=== PATIENT | male | born 1970 | race Caucasian/White ===

== ENCOUNTER → 2019-02-28 16:04 | Outpatient (CLI) | payer BC, SELFPAY ==
[2019-02-28 16:55] LABS: Basophils % 0.7 % (0.1-2.0); Eosinophils # 0.2 K/mm3 (0.0-0.4); Eosinophils % 3.2 % (0.1-12.0); Hematocrit 37.2 % (42.0-52.0); Hemoglobin 12.8 g/dL (14.1-18.0); Lymphocytes # 1.7 K/mm3 (0.7-4.5); Lymphocytes % 33.8 % (10-50); Mean Corpuscular HGB Conc 34.4 g/dL (31.8-35.4); Mean Corpuscular Hemoglobin 28.7 pg (27.0-31.2); Mean Corpuscular Volume 83.6 fl (80-94); Mean Platelet Volume 7.1 fl (7.4-10.4); Monocytes # 0.3 K/mm3 (0.1-1.0); Monocytes % 6.7 % (1.7-9.3); Neutrophils # 2.8 K/mm3 (1.8-7.8); Neutrophils % 55.7 % (37.0-80.0); Platelet Count 270 K/mm3 (142-424); Red Blood Count 4.45 M/mm3 (4.60-6.20); Red Cell Distribution Width 14.3 % (11.5-17.5); White Blood Count 5.1 K/mm3 (4.8-10.8)
[2019-02-28 18:50] LABS: Alanine Aminotransferase 31 U/L (12-78); Albumin Level 4.2 gm/dL (3.4-5.0); Albumin/Globulin Ratio 1.2 (1.1-1.8); Alkaline Phosphatase 114 U/L (46-116); Anion Gap 14.6 mEq/L (5-15); Aspartate Amino Transferase 23 U/L (15-37); Bilirubin,Total 0.6 mg/dL (0.2-1.0); Blood Urea Nitrogen 14 mg/dL (7-18); Calcium 9.3 mg/dL (8.5-10.1); Carbon Dioxide 29 mmol/L (21.0-32.0); Chloride 101 mmol/L (98-107); Creatinine,Serum 1.05 mg/dL (0.70-1.30); Estimated Glomerular Filt Rate 76 ml/min (>60); GFR (African American) 92 ML/MIN (>60); Globulin 3.4 gm/dl (1.3-3.2); Glucose 95 mg/dL (74-106); Potassium 4.6 mmoL/L (3.5-5.1); Sodium 140 mmol/L (136-145); Thyroid Stimulating Hormone 1.98 uIU/ml (0.358-3.740); Total Protein,Serum 7.6 gm/dL (6.4-8.2)
[2019-03-01 11:49] LABS: Ferritin 50 ng/mL (8-388)
[2019-03-02 04:07] LABS: Iron 140 ug/dL (38-169); UIBC 326 ug/dL (111-343)
[2019-03-02 11:00] LABS: Folate 10.6 ng/mL (>3.0); Iron Saturation 30 % (15-55); Vitamin B12 420 pg/mL (232-1245)
== END ==
PROVIDERS: Visit Provider Nurse Practitioner Family
DX: F33.1 Major depressive disorder, recurrent, moderate (principal); R53.81 Other malaise
CPT/HCPCS: 36415; 80053; 82607; 82728; 82746; 83540; 83550; 84443; 85025

== ENCOUNTER → 2019-03-22 12:34 | Outpatient (CLI) | payer OTHER, BC, SELFPAY ==
--- NOTE | 2019-03-22 12:43 | XR_ITS ---
PROCEDURE: XR KNEE LT 3V CLINICAL INDICATION: knee pain Anterior knee pain COMPARISON: No exams were available for comparison FINDINGS: No fracture or dislocation. No lytic or blastic change. There is normal mineralization. The joint spaces are well-preserved. No significant degenerative/arthritic changes. No erosive changes evident. Other findings:Well-circumscribed corticated fragment noted of the tibial tuberosity with associated soft tissue swelling IMPRESSION: There is a well-circumscribed corticated fragment of the tibial tuberosity noted with associated soft tissue swelling suggesting adult Yannick-Schlatter's disease. Dictated by: Pillo Magana MD 03/22/2019 15:00 Electronically signed by Pillo Magana MD in [place] 03/22/2019 15:00
== END ==
PROVIDERS: PCP Emergency Medicine; Visit Provider Emergency Medicine
DX: M25.562 Pain in left knee (principal)
CPT/HCPCS: 73562

== ENCOUNTER → 2019-10-31 11:22 | Outpatient (CLI) | payer BC, SELFPAY | PROVIDERS: PCP Nurse Practitioner Family; Visit Provider Nurse Practitioner Family | DX: G47.30 Sleep apnea, unspecified (principal); R40.0 Somnolence; R51 Headache; E66.9 Obesity, unspecified | CPT/HCPCS: G0399 ==

== ENCOUNTER → 2020-06-13 13:15 | Outpatient (CLI) | payer BC, SELFPAY ==
[2020-06-13 13:48] LABS: Basophils # 0.1 K/mm3 (0-0.2); Basophils % 0.8 % (0.1-2.0); Eosinophils # 0.2 K/mm3 (0.0-0.4); Eosinophils % 2.3 % (0.1-12.0); Hematocrit 40.4 % (42.0-52.0); Hemoglobin 13.4 g/dL (14.1-18.0); Lymphocytes % 30.6 % (10-50); Mean Corpuscular Hemoglobin 27.7 pg (27.0-31.2); Mean Corpuscular Volume 83.8 fl (80-94); Mean Platelet Volume 6.8 fl (7.4-10.4); Monocytes # 0.4 K/mm3 (0.1-1.0); Monocytes % 5.6 % (1.7-9.3); Neutrophils % 60.7 % (37.0-80.0); Platelet Count 275 K/mm3 (142-424); Red Blood Count 4.82 M/mm3 (4.60-6.20); Red Cell Distribution Width 13.2 % (11.5-17.5); White Blood Count 6.5 K/mm3 (4.8-10.8)
[2020-06-13 13:52] LABS: Hemoglobin A1C 5.8 % (4.0-6.0)
[2020-06-13 14:08] LABS: Alanine Aminotransferase 34 U/L (12-78); Albumin Level 4.6 g/dl (3.5-5.0); Albumin/Globulin Ratio 1.5 (1.1-1.8); Alkaline Phosphatase 98 U/L (38-126); Anion Gap 10.3 mEq/L (5-15); Aspartate Amino Transferase 33 U/L (17-59); Bilirubin,Total 0.4 mg/dl (0.2-1.3); Blood Urea Nitrogen 17 mg/dl (9-20); Calcium 9.6 mg/dl (8.4-10.2); Carbon Dioxide 28 mmol/L (22.0-30.0); Chloride 102 mmol/L (98-107); Chol/HDL Ratio 6.3 (1-3.5); Cholesterol 213 mg/dl (140-200); Estimated Glomerular Filt Rate 90 ml/min (>60); GFR (African American) 109 ML/MIN (>60); Glucose 102 mg/dl (74-100); HDL Cholesterol 34 mg/dl (40-60); Potassium 4.3 mmoL/L (3.5-5.1); Sodium 136 mmol/L (136-145); Total Protein,Serum 7.6 g/dl (6.3-8.2); Triglycerides 350 mg/dl (30-150); VLDL Cholesterol 70 mg/dL (0-40)
[2020-06-13 14:20] LABS: Direct LDL Cholesterol 99.77 mg/dL (100-129)
[2020-06-13 14:27] LABS: 25-OH Vitamin D, Total 28.3 ng/mL (30-100)
[2020-06-13 14:39] LABS: Thyroid Stimulating Hormone 1.34 uIU/mL (0.465-4.68)
[2020-06-14 17:56] LABS: Testosterone,Total 300 ng/dL (264-916)
== END ==
PROVIDERS: Visit Provider Nurse Practitioner Family
DX: Z00.00 Encounter for general adult medical examination without abnormal findings (principal); R73.9 Hyperglycemia, unspecified; E78.2 Mixed hyperlipidemia; E55.9 Vitamin D deficiency, unspecified; R40.0 Somnolence; R68.82 Decreased libido
CPT/HCPCS: 36415; 80053; 80061; 82306; 83036; 84403; 84443; 85025

== ENCOUNTER → 2021-01-15 10:43 | Outpatient (CLI) | payer BC, SELFPAY ==
[2021-01-15 10:45] LABS: Microscopic, Urine URINE MICROSCOPIC (MICROSCOPIC)
[2021-01-15 12:00] LABS: Appearance,Urine CLEAR (Clear); Bilirubin,Urine Negative (Negative); Blood, Urine Negative (Negative); Color,Urine YELLOW (Yellow); Glucose,Urine (UA) Negative (Negative); Ketones,Urine Negative (Negative); Leukocyte Esterase,Urine Negative (Negative); Nitrate,Urine Negative (Negative); PH,Urine 7.5 (5.0-8.5); Protein,Urine Negative (Negative); Urobilinogen,Urine 0.2 EU/dl (0.2)
[2021-01-15 12:21] LABS: Mucus,Urine Trace /lpf
[2021-01-15 16:42] LABS: Chloride 100 mmol/L (98-107)
[2021-01-15 16:43] LABS: Potassium 4.4 mmoL/L (3.5-5.1); Sodium 139 mmol/L (136-145)
[2021-01-15 16:46] LABS: Anion Gap 14.4 mEq/L (5-15); Blood Urea Nitrogen 14 mg/dl (9-20); Calcium 9.2 mg/dl (8.4-10.2); Carbon Dioxide 29 mmol/L (22.0-30.0); Estimated Glomerular Filt Rate 90 ml/min (>60); GFR (African American) 109 ML/MIN (>60); Glucose 105 mg/dl (74-100)
== END ==
PROVIDERS: Visit Provider Internal Medicine Adolescent Medicine
DX: M54.5 Low back pain (principal)
CPT/HCPCS: 36415; 80048; 81001

== ENCOUNTER → 2021-12-11 09:12 | Outpatient (CLI) | payer BC, SELFPAY ==
--- NOTE | 2021-12-11 09:27 | CT_ITS ---
FINAL REPORT CLINICAL HISTORY: GROSS HEMATURIA; FLANK PAIN FINDINGS: Axial CT images of the abdomen and pelvis were obtained without intravenous contrast. Coronal reformatted images were also obtained.This study was performed with techniques to keep radiation doses as low as reasonably achievable (ALARA). Individualized dose reduction techniques using automated exposure control or adjustment of mA and/or kV according to the patient''s size were employed. Abdomen: The lung bases are clear. There is no evidence of renal stone or hydronephrosis. The gallbladder is present. The liver is fatty infiltrated. The spleen and pancreas have an unremarkable, unenhanced appearance. No mass or adenopathy is seen. No inflammatory process is identified. Pelvis: Images of the pelvis reveal no evidence of ureteral dilation or ureteral stone. The appendix is not visualized. No mass or abnormal fluid collection is identified. There is a small right inguinal hernia containing fat only. There are postoperative changes in the lower pelvis. IMPRESSION: No renal or ureteral stone, or hydronephrosis. Small right inguinal hernia containing fat only. Reviewed, Interpreted and Dictated by Reginald Reyes III, MD Transcribed by Crystal Gonzales Authenticated and . [facility]
== END ==
PROVIDERS: PCP Nurse Practitioner Family; Visit Provider Nurse Practitioner Family
DX: R10.9 Unspecified abdominal pain (principal); R31.0 Gross hematuria
CPT/HCPCS: 74176

== ENCOUNTER 2024-10-04 11:44 | Outpatient (CLI) | payer BC, SELFPAY ==
--- NOTE | 2024-10-04 11:48 | XR_ITS ---
FINAL REPORT CLINICAL HISTORY: lower back pain with sciatica COMPARISON: None FINDINGS: LUMBOSACRAL SPINE SERIES Five views of the lumbosacral spine were obtained. There is no fracture present. There is no malalignment. There is mild to moderate anterior osteophyte formation at L1-2 and L2-3. Surgical clips are noted in the floor the pelvis. The SI joints are widely patent. IMPRESSION: Degenerative changes without acute process. Reviewed, Interpreted and Dictated by Aron Wagner MD Transcribed by Kandace Simental Authenticated and [facility]
--- NOTE | 2024-10-04 11:49 | XR_ITS ---
FINAL REPORT CLINICAL HISTORY: lower back pain with sciatica COMPARISON: None FINDINGS: RIGHT HIP Two views of the right hip with an AP view of the pelvis demonstrate no acute fracture or dislocation. The joint spaces appear normal. The visualized bony structures are well aligned. Moderate vascular calcifications in the mid right SFA are greater than expected for patient's age. IMPRESSION: No acute bony abnormality. Reviewed, Interpreted and Dictated by Aron Wagner MD Transcribed by Kandace Simental Authenticated and [facility]
--- NOTE | 2024-10-04 11:49 | XR_ITS ---
FINAL REPORT CLINICAL HISTORY: SACROLLITIS MECHANICAL LOW BACK PAIN COMPARISON: None FINDINGS: LEFT HIP: Two views of the left hip with an AP view of the pelvis demonstrate no acute fracture or dislocation. There is a sclerotic focus in the proximal femoral diaphysis measuring 2.1 cm probably representing an enostosis. The joint spaces appear normal. The visualized bony structures are well aligned. No soft tissue abnormality is seen. IMPRESSION: Sclerotic focus proximal femur. If patient has a history of prostate cancer, blastic metastasis cannot be excluded. Reviewed, Interpreted and Dictated by Aron Wagner MD Transcribed by Kandace Simental Authenticated and [facility]
--- NOTE | 2024-10-04 11:52 | XR_ITS ---
FINAL REPORT CLINICAL HISTORY: SACROLITIS MECHANICAL LOW BACK PAIN COMPARISON: None FINDINGS: SACROILIAC JOINTS SERIES Three views were obtained. There is no acute fracture or dislocation. The joint spaces appear normal. The visualized bony structures are well aligned. No soft tissue abnormality is seen. IMPRESSION: No acute bony abnormality. Reviewed, Interpreted and Dictated by Aron Wagner MD Transcribed by Kandace Simental Authenticated and [facility]
== END 2024-10-04 23:59 | disposition home or self-care (01) ==
LOC: RAD 11:45
PROVIDERS: PCP Internal Medicine Adolescent Medicine; Visit Provider Internal Medicine Adolescent Medicine
DX: M47.816 Spondylosis without myelopathy or radiculopathy, lumbar region (principal); M89.8X5 Other specified disorders of bone, thigh
CPT/HCPCS: 72110; 72202; 73502

== ENCOUNTER 2024-10-12 07:15 | Outpatient (CLI) | payer BC, SELFPAY ==
--- NOTE | 2024-10-12 07:17 | CT_ITS ---
FINAL REPORT TECHNIQUE: Thin section axial images were obtained through the left femur without contrast. Reconstruction images were obtained from the axial data. Exam was performed using dose reduction technique. This study was performed with techniques to keep radiation doses as low as reasonably achievable (ALARA). Individualized dose reduction techniques using automated exposure control or adjustment of mA and/or kV according to the patient's size were employed. CLINICAL HISTORY: ABNORMAL XRAY COMPARISON: CT of the abdomen and pelvis 12/11/2021 FINDINGS: CT LEFT FEMUR: There is no acute fracture or dislocation. The hip and the knee are intact, with mild degenerative change of both joints. There is a sclerotic lesion in the proximal femoral shaft, which is stable since a prior CT of the abdomen and pelvis from 2021. No additional bone lesions are identified. No areas of periosteal reaction are present. No acute soft tissue abnormality is identified. IMPRESSION: Sclerotic lesion in the proximal left femoral shaft, stable since the prior CT of the abdomen and pelvis dated 2021. Favor bone island. No acute soft tissue abnormality. Reviewed, Interpreted and Dictated by Sweetie Maier MD Transcribed by Kylee Warner Authenticated and [facility]
== END 2024-10-12 23:59 | disposition home or self-care (01) ==
LOC: RAD 07:16
PROVIDERS: PCP Internal Medicine Adolescent Medicine; Visit Provider Internal Medicine Adolescent Medicine
DX: M89.9 Disorder of bone, unspecified (principal); R93.89 Abnormal findings on diagnostic imaging of other specified body structures
CPT/HCPCS: 73700